=== PATIENT | female | born 2000 | race African-American/Black ===

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

== ENCOUNTER 2021-05-09 08:45 | Observation (INO) | payer OTHER ==
[~2021-05-09] VITALS: Ht 142.2 cm; Wt 55.3 kg
[2021-05-09] MEDS ORDERED: TERBUTALINE SULFATE 1 MG/ML 1ML VIAL SC ONE (10:00)
== END 2021-05-09 10:52 | disposition home or self-care (01) ==
LOC: LDRP 08:45
PROVIDERS: ADMIT Obstetrics & Gynecology; ATTEND Obstetrics & Gynecology
DX: O62.9 Abnormality of forces of labor, unspecified (principal); Z3A.34 34 weeks gestation of pregnancy
CPT/HCPCS: 59025; 81002; 94760; 96372; G0378; G0379